=== PATIENT | male | born 1950 | race Caucasian/White ===

== ENCOUNTER 2017-06-08 16:11 | Inpatient (IN) | payer OTHER, MEDICARE ==
[~2017-06-08 16:11] MED LIST: AMLO10TA2 PO; ARIC23TA PO; CLON0.1T PO; CONTOUR1 XX; EZET10 PO; FINA5TAB2 PO; GLIP10TA6 PO; LEVO25TA4 PO; METF1000 PO; METO50TA PO; NIAC100T2 PO; PRAV40TA2 PO; PROZ20CA11 PO; RIVA1TAB PO; TAMS5CAP PO; Z.0.OXYGENDME NC
[2017-06-08 16:39] VITALS: PULSE 83; RESP 16; TEMP 98.6; O2SAT 95
[2017-06-08 17:32] LABS: AUTOMATED NEUTROPHIL # 4.2 TH/MM3 (1.8-7.7); BASOPHIL % 0.7 % (0.0-2.0); EOSINOPHIL # 0.4 TH/MM3 (0-0.4); EOSINOPHIL % 5.5 % (0.0-4.0); HEMATOCRIT 48.6 % (39.0-51.0); HEMO FLAGS DIFF FINAL; LYMPH % 20.9 % (9.0-44.0); LYMPHOCYTE # 1.4 TH/MM3 (1.0-4.8); MEAN CELL VOLUME 89.2 FL (80.0-100.0); MEAN CORPUSCULAR HGB CONC 33.6 % (32.0-36.0); MONO % 8.9 % (0.0-8.0); PLATELET COUNT 246 TH/MM3 (150-450); RED BLOOD COUNT 5.45 MIL/MM3 (4.50-5.90); RED CELL DISTRIBUTION WIDTH 13.4 % (11.6-17.2); WHITE BLOOD COUNT 6.5 TH/MM3 (4.0-11.0)
[2017-06-08 17:49] LABS: ALT (GPT) 104 U/L (12-78); ANION GAP 9 MEQ/L (5-15); AST (GOT) 98 U/L (15-37); BICARBONATE 31.3 MEQ/L (21.0-32.0); BLOOD UREA NITROGEN 12 MG/DL (7-18); CHLORIDE 98 MEQ/L (98-107); GLOMERULAR FILTRATION RATE 69 ML/MIN (>89); POTASSIUM 3.2 MEQ/L (3.5-5.1); SODIUM (NA) 138 MEQ/L (136-145)
[2017-06-08 17:51] LABS: ALCOHOL LESS THAN 3 MG/DL (0-5)
[2017-06-08 17:52] LABS: ALKALINE PHOSPHATASE 99 U/L (45-117); TOTAL BILIRUBIN ADULT 0.5 MG/DL (0.2-1.0)
[2017-06-08 17:57] LABS: ACETAMINOPHEN LESS THAN 2.0 MCG/ML (10.0-30.0)
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
--- NOTE | 2017-06-08 23:12 | RADRPT ---
EXAM DATE/TIME: 06/08/2017 22:42 [facility] COMPARISON: CHEST SINGLE AP, November 15, 2014, 8:21. INDICATIONS : Shortness of breath. MEDICAL HISTORY : None. SURGICAL HISTORY : CABG. ENCOUNTER: Initial ACUITY: 1 day PAIN SCORE: 0/10 LOCATION: Bilateral chest FINDINGS: A single view of the chest demonstrates the lungs to be symmetrically aerated without evidence of mas s, infiltrate or effusion. The cardiomediastinal contours are unremarkable. Osseous structures are intact. The patient is again noted to be status post median sternotomy. Mild atherosclerotic changes are present in the aorta. CONCLUSION: No acute disease. Montez Johnson MD on June 08, 2017 at 23:11 Board Certified Radiologist. This report was verified electronically.
[2017-06-08] MEDS ORDERED: LORazepam 2 MG TAB PO ONE (23:45)
[2017-06-09] VITALS (9 sets, daily range): BP systolic 118–217; BP diastolic 72–98; PULSE 66–94; RESP 15–20; O2SAT 95–98
[2017-06-09] MEDS ORDERED: ALUMINUM/MAGNESIUM/SIMETH 30 ML CUP PO PRN (17:30)
[2017-06-09] MEDS ORDERED: LORazepam 2 MG/ML VIAL IM PRN (17:30)
[2017-06-09] MEDS ORDERED: diphenhydrAMINE HCL 50 MG/ML VIAL IM PRN (17:30)
[2017-06-09] MEDS ORDERED: MAGNESIUM HYDROXIDE SUSP 30 ML CUP PO PRN (17:30)
[2017-06-09] MEDS ORDERED: diphenhydrAMINE HCL 50 MG CAP PO PRN (17:30)
[2017-06-09] MEDS ORDERED: ACETAMINOPHEN 325 MG TAB PO PRN (17:30)
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
[2017-06-09] MEDS: cloNIDine HCL 0.1 MG TAB PO SCH (18:00)
[2017-06-09] MEDS: NIACIN 100 MG TAB PO SCH (18:01)
[2017-06-09] MEDS: DONEPEZIL HCL 5 MG TAB PO SCH (21:18)
[2017-06-09] MEDS: TAMSULOSIN HCL 0.4 MG CAP PO SCH (21:19)
[2017-06-09] MEDS: METOPROLOL TARTRATE 50 MG TAB PO SCH (21:19)
[2017-06-09] MEDS: metFORMIN HCL 500 MG TAB PO SCH (21:19)
[2017-06-09] MEDS: traZODone HCL 50 MG TAB PO PRN (22:00)
[2017-06-09] MEDS: EZETIMIBE 10 MG TAB PO SCH (22:32)
[2017-06-09] MEDS ORDERED: ENALAPRILAT 2.5 MG/2 ML VIAL IV PUSH ONE (23:30)
[2017-06-10 03:20] VITALS: BP 116/67; PULSE 78; RESP 16; O2SAT 97
[2017-06-10 04:16] VITALS: BP 172/78; PULSE 68; RESP 16; O2SAT 96
[2017-06-10 04:20] LABS: AUTOMATED NEUTROPHIL # 2.8 TH/MM3 (1.8-7.7); BASOPHIL % 0.7 % (0.0-2.0); EOSINOPHIL # 0.6 TH/MM3 (0-0.4); EOSINOPHIL % 10.4 % (0.0-4.0); HEMATOCRIT 42.5 % (39.0-51.0); HEMO FLAGS DIFF FINAL; LYMPH % 28.9 % (9.0-44.0); LYMPHOCYTE # 1.5 TH/MM3 (1.0-4.8); MEAN CELL VOLUME 89.4 FL (80.0-100.0); MEAN CORPUSCULAR HEMOGLOBIN 29.3 PG (27.0-34.0); MEAN CORPUSCULAR HGB CONC 32.8 % (32.0-36.0); MONO % 8.5 % (0.0-8.0); NEUT % 51.5 % (16.0-70.0); PLATELET COUNT 195 TH/MM3 (150-450); RED BLOOD COUNT 4.75 MIL/MM3 (4.50-5.90); RED CELL DISTRIBUTION WIDTH 13.2 % (11.6-17.2); WHITE BLOOD COUNT 5.4 TH/MM3 (4.0-11.0)
[2017-06-10 05:27] LABS: ALKALINE PHOSPHATASE 68 U/L (45-117); ALT (GPT) 85 U/L (12-78); ANION GAP 8 MEQ/L (5-15); AST (GOT) 57 U/L (15-37); BICARBONATE 31.8 MEQ/L (21.0-32.0); BLOOD UREA NITROGEN 14 MG/DL (7-18); CHLORIDE 99 MEQ/L (98-107); GLOMERULAR FILTRATION RATE 73 ML/MIN (>89); HDL CHOLESTEROL 31.6 MG/DL (40.0-60.0); LDL CHOLESTEROL 112 MG/DL (0-99); SODIUM (NA) 139 MEQ/L (136-145); TOTAL BILIRUBIN ADULT 0.4 MG/DL (0.2-1.0)
[2017-06-10 06:17] VITALS: BP 124/59; PULSE 65; RESP 16; O2SAT 96
[2017-06-10] MEDS: PRAVASTATIN SOD 40 MG TAB PO SCH (08:55)
[2017-06-10] MEDS: glipiZIDE 10 MG TAB PO SCH ×2 (08:55→16:18)
[2017-06-10] MEDS: LEVOTHYROXINE SODIUM 25 MCG TAB PO SCH (08:55)
[2017-06-10] MEDS: METOPROLOL TARTRATE 50 MG TAB PO SCH ×2 (08:56→20:43)
[2017-06-10] MEDS: cloNIDine HCL 0.1 MG TAB PO SCH ×3 (08:56→17:42)
[2017-06-10] MEDS: FINASTERIDE 5 MG TAB PO SCH (08:56)
[2017-06-10] MEDS: NIACIN 100 MG TAB PO SCH ×3 (08:56→17:42)
[2017-06-10] MEDS: metFORMIN HCL 500 MG TAB PO SCH ×2 (08:56→20:44)
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
[2017-06-10] MEDS ORDERED: POTASSIUM CHLORIDE 25 MEQ EFFERVESCENT TAB PO ONE (11:45)
[2017-06-10] MEDS: INSULIN ASPART SUPPLEMENTAL SCALE SQ SCH ×3 (12:00→20:43)
[2017-06-10 13:14] VITALS: BP 155/72; PULSE 58
[2017-06-10] MEDS: RIVAROXABAN 20 MG TAB PO SCH (14:28)
[2017-06-10] MEDS: NICOTINE 7 MG/24 HR PATCH T-DERMAL SCH (14:29)
[2017-06-10] MEDS: LORazepam 1 MG TAB PO PRN (15:35)
[2017-06-10 16:01] LABS: HEMOGLOBIN A1a 0.9 %; HEMOGLOBIN A1b 2.3 %; HEMOGLOBIN Ao 80.9 %; HEMOGLOBIN LA1C 2.7 %; HEMOGLOBIN P3 4.8 %
--- NOTE | 2017-06-10 16:02 | RADRPT ---
EXAM DATE/TIME: 06/10/2017 15:00 [place] COMPARISON: No previous studies available for comparison. INDICATIONS : Pain in right shoulder, no known injury. MEDICAL HISTORY : None. SURGICAL HISTORY : CABG. ENCOUNTER: Subsequent ACUITY: 2 days PAIN SCORE: 0/10 LOCATION: Right shoulder FINDINGS: There is no evidence of acute fracture. Bony mineralization is normal. The glenohumeral joint is inta ct. There is mild osteoarthritis involving the acromioclavicular joint with spur on the undersurface of the distal acromion.. There is sclerosis at the insertion of the supraspinatus tendon. CONCLUSION: 1. Moderate degenerative changes as described above. If there is continued concern for rotator cuff p athology MRI is recommended. Evan Cheney MD on June 10, 2017 at 15:59 Board Certified Radiologist. This report was verified electronically.
[2017-06-10 18:00] VITALS: BP 128/64; PULSE 18; PULSE 84; RESP 18; TEMP 97.2; O2SAT 98
--- NOTE | 2017-06-10 18:05 | EKG ---
Date Performed: 06/09/2017 Time Performed: 22:28:16 PTAGE: 67 years EKG: SINUS BRADYCARDIA INCOMPLETE RIGHT BUNDLE BRANCH BLOCK ST DEVIATION AND MODERATE T-WAVE ABN ORMALITY, CONSIDER LATERAL ISCHEMIA When compared to previous tracing, the nonspecific ST-T wave Alaniz ges are new. Clinical corrolation will be important to exclude myocardial Ischemia. ABNORMAL ECG PREVIOUS TRACING : 04/14/2015 20.38 DOCTOR: Marissa Naidu Interpretating Date/Time 06/10/2017 18:04:25
[2017-06-10 19:15] VITALS: BP 177/84; PULSE 54; RESP 17; TEMP 97.8; O2SAT 96
[2017-06-10] MEDS: EZETIMIBE 10 MG TAB PO SCH (20:43)
[2017-06-10] MEDS: DONEPEZIL HCL 5 MG TAB PO SCH (20:44)
[2017-06-10] MEDS: traZODone HCL 50 MG TAB PO PRN (20:44)
[2017-06-10] MEDS: TAMSULOSIN HCL 0.4 MG CAP PO SCH (20:44)
[2017-06-10] MEDS: RESP: ALBUTEROL 2.5 MG/IPRATROPIUM 0.5 MG NEB (PRN) NEB (22:20)
[2017-06-11] MEDS: RESP: ALBUTEROL 2.5 MG/IPRATROPIUM 0.5 MG NEB (PRN) NEB (04:54)
[2017-06-11] MEDS: LEVOTHYROXINE SODIUM 25 MCG TAB PO SCH (05:00)
[2017-06-11] MEDS ORDERED: cloNIDine HCL 0.1 MG TAB PO ONE (06:00)
[2017-06-11 06:18] VITALS: BP_SYST 200; BP_DIAS 80; BP_DIAS 82; PULSE 51; RESP 21; TEMP 97.7; O2SAT 96
[2017-06-11] MEDS: INSULIN ASPART SUPPLEMENTAL SCALE SQ SCH ×4 (06:53→21:00)
[2017-06-11] MEDS: glipiZIDE 10 MG TAB PO SCH ×2 (06:56→16:00)
[2017-06-11] MEDS: metFORMIN HCL 500 MG TAB PO SCH ×2 (09:00→20:58)
[2017-06-11] MEDS: REMOVE OLD PATCH T-DERMAL SCH (09:00)
[2017-06-11] MEDS: NICOTINE 7 MG/24 HR PATCH T-DERMAL SCH (09:00)
[2017-06-11] MEDS: METOPROLOL TARTRATE 50 MG TAB PO SCH ×2 (09:03→20:58)
[2017-06-11] MEDS: FINASTERIDE 5 MG TAB PO SCH (09:03)
[2017-06-11] MEDS: NIACIN 100 MG TAB PO SCH ×3 (09:03→18:00)
[2017-06-11] MEDS: PRAVASTATIN SOD 40 MG TAB PO SCH (09:03)
[2017-06-11] MEDS: RIVAROXABAN 20 MG TAB PO SCH (09:04)
[2017-06-11] MEDS: cloNIDine HCL 0.1 MG TAB PO SCH ×3 (09:04→18:00)
[2017-06-11 09:12] LABS: BICARBONATE 26.8 MEQ/L (21.0-32.0); MAGNESIUM 1.2 MG/DL (1.5-2.5); POTASSIUM 3.3 MEQ/L (3.5-5.1)
[2017-06-11] MEDS: FLUoxetine HCL 20 MG CAP PO SCH (11:49)
[2017-06-11 14:12] VITALS: BP 139/63; PULSE 52; RESP 18; TEMP 98; O2SAT 96
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
[2017-06-11] MEDS ORDERED: POTASSIUM CHLORIDE 25 MEQ EFFERVESCENT TAB PO ONE (17:15)
--- NOTE | 2017-06-11 17:15 | HHI.PR ---
Subjective Remarks The patient was resting comfortably. He said he wants to get out of here. He had no acute complaints at this time. He said his right shoulder pain has improved. Objective Vitals Vital Signs Date Time Temp Pulse Resp B/P (MAP) Pulse Ox O2 Delivery O2 Flow Rate FiO2 06/11/17 14:12 98.0 52 18 139/63 (88) 96 06/11/17 06:18 97.7 51 21 200/82 (121) 96 200/80 (120) 06/10/17 19:15 97.8 54 17 177/84 (115) 96 06/10/17 18:00 97.2 84 18 128/64 (85) 98 I/O 06/10/17 06/10/17 06/10/17 06/11/17 06/11/17 06/11/17 07:00 15:00 23:00 07:00 15:00 23:00 Intake Total 1560 ml 480 ml 0 ml 480 ml Output Total 400 ml Balance -400 ml 1560 ml 480 ml 0 ml 480 ml Intake Oral 1560 ml 480 ml 0 ml 480 ml Output Urine Total 400 ml # Voids 5 1 2 # Bowel Movements 2 Result Diagram: 06/10/17 0407 06/11/17 0827 Imaging Last Impressions Shoulder X-Ray 06/10/17 0000 Signed Impressions: Service Date/Time: Saturday, June 10, 2017 15:00 - CONCLUSION: 1. Moderate degenerative changes as described above. If there is continued concern for rotator cuff pathology MRI is recommended. Evan Cheney MD Chest X-Ray 06/08/17 0000 Signed Impressions: Service Date/Time: Thursday, June 08, 2017 22:42 - CONCLUSION: No acute disease. Montez Johnson MD Objective Remarks GENERAL: This is a well-nourished, well-developed patient, in no apparent distress. SKIN: No rashes, ecchymoses or lesions. Cool and dry. HEAD: Atraumatic. Normocephalic. No temporal or scalp tenderness. EYES: Pupils equal round and reactive. Extraocular motions intact. No scleral icterus. No injection or drainage. ENT: Nose without bleeding, purulent drainage or septal hematoma. Throat without erythema, tonsillar hypertrophy or exudate. Uvula midline. Airway patent. NECK: Trachea midline. No JVD or lymphadenopathy. Supple, nontender, no meningeal signs. CARDIOVASCULAR: Regular rate and rhythm without murmurs, gallops, or rubs. RESPIRATORY: Mild wheezing appreciated. GASTROINTESTINAL: Abdomen soft, non-tender, nondistended. No hepato-splenomegaly , or palpable masses. No guarding. MUSCULOSKELETAL: Extremities without clubbing, cyanosis, or edema. No joint tenderness, effusion, or edema noted. NEUROLOGICAL: Awake and alert. Cranial nerves II through XII intact. Motor and sensory grossly within normal limits. Five out of 5 muscle strength in all muscle groups. Normal speech. PSYCH: Calm. Medications and IVs Current Medications Medications (Trade) Dose Ordered Sig/Karey Route Start Time Stop Time Status Last Admin (Ativan) 1 mg Q6H PRN PO 06/09/17 17:30 06/10/17 15:35 (Ativan Inj) 1 mg Q6H PRN IM 06/09/17 17:30 (Benadryl) 50 mg Q6H PRN PO 06/09/17 17:30 (Benadryl Inj) 50 mg Q6H PRN IM 06/09/17 17:30 (Tylenol) 650 mg Q4H PRN PO 06/09/17 17:30 (Milk Of Magnesia Liq) 30 ml DAILY PRN PO 06/09/17 17:30 (Mag-Al Plus Susp Liq) 30 ml Q6H PRN PO 06/09/17 17:30 (Desyrel) 50 mg HS PRN PO 06/09/17 17:30 06/10/17 20:44 (Norvasc) 10 mg DAILY PO 06/10/17 09:00 06/11/17 09:03 (Catapres) 0.1 mg TID PO 06/09/17 18:00 06/11/17 09:04 (Aricept) 10 mg HS PO 06/09/17 21:00 06/10/17 20:44 (Zetia) 10 mg HS PO 06/09/17 21:00 06/10/17 20:43 (Proscar) 5 mg DAILY PO 06/10/17 09:00 06/11/17 09:03 (Glucotrol) 10 mg BIDAC PO 06/10/17 07:00 06/11/17 16:00 (Synthroid) 25 mcg DAILY@0600 PO 06/10/17 06:00 06/11/17 05:00 (Glucophage) 1,000 mg BID PO 06/09/17 21:00 06/11/17 09:00 (Lopressor) 50 mg BID PO 06/09/17 21:00 06/11/17 09:03 (Niacin) 100 mg TID PO 06/09/17 18:00 06/11/17 13:00 (Pravachol) 40 mg DAILY PO 06/10/17 09:00 06/11/17 09:03 (Flomax) 0.4 mg HS PO 06/09/17 21:00 06/10/17 20:44 (Habitrol 7 Mg Patch.24 Hr) 1 patch DAILY T-DERMAL 06/10/17 12:30 06/11/17 09:00 Miscellaneous Information 1 DAILY T-DERMAL 06/11/17 09:00 (NovoLOG SUPPLEMENTAL SCALE) 1 ACHS SLIDING SCALE SQ 06/10/17 12:00 06/11/17 16:45 (Xarelto) 20 mg DAILY PO 06/10/17 12:30 06/11/17 09:04 (Duoneb Neb) 1 ampule Q4HR NEB PRN NEB 06/10/17 22:15 06/11/17 04:54 (PROzac) 20 mg DAILY PO 06/11/17 12:00 06/11/17 11:49 A/P Assessment and Plan CAD S/p CABG. No complaints of chest pain at this time. - continue home medication regimen. CVA/ Hypercoagulable state On Xarelto as an outpt. - resume Xarelto. COPD The pt still smokes, has wheezing on exam. CXR clear. - oxygen and nebs as needed. - smoking cessation instruction. - nicotine patch. Hypokalemia/ Hypomagnesemia Possibly s/t decreased PO intake. - replete with po KCl and IV magnesium and monitor. Right shoulder pain The pt reports pain in the right shoulder after being put in the police car. Shoulder x ray with degenerative changes. Improved. - monitor as needed. DM On PO meds as an outpt. - insulin sliding scale. Renal insufficiency Stable at this time. - avoid nephrotoxic agents. PPx: Montez Cortez DO Jun 11, 2017 17:15
[2017-06-11 18:00] VITALS: BP 142/65; PULSE 49; RESP 17; TEMP 97.7; O2SAT 94
[2017-06-11] MEDS: TAMSULOSIN HCL 0.4 MG CAP PO SCH (20:58)
[2017-06-11] MEDS: DONEPEZIL HCL 5 MG TAB PO SCH (20:58)
[2017-06-11] MEDS: EZETIMIBE 10 MG TAB PO SCH (20:58)
[2017-06-11] MEDS: traZODone HCL 50 MG TAB PO PRN (20:58)
[2017-06-11] MEDS: MAGNESIUM SULFATE 1 GM PREMIX 100 ML IV SCH ×2 (22:08→23:47)
[2017-06-12] MEDS: MAGNESIUM SULFATE 1 GM PREMIX 100 ML IV SCH (01:09)
[2017-06-12 05:08] VITALS: BP 164/81
[2017-06-12 05:24] VITALS: PULSE 90; RESP 18; TEMP 97.4; O2SAT 97
[2017-06-12] MEDS: LEVOTHYROXINE SODIUM 25 MCG TAB PO SCH (06:00)
[2017-06-12] MEDS: glipiZIDE 10 MG TAB PO SCH ×2 (07:00→15:20)
[2017-06-12] MEDS: INSULIN ASPART SUPPLEMENTAL SCALE SQ SCH ×4 (08:00→20:49)
[2017-06-12 08:41] LABS: BICARBONATE 32.3 MEQ/L (21.0-32.0); MAGNESIUM 1.8 MG/DL (1.5-2.5); POTASSIUM 3.6 MEQ/L (3.5-5.1)
[2017-06-12] MEDS: REMOVE OLD PATCH T-DERMAL SCH (09:00)
[2017-06-12] MEDS: PRAVASTATIN SOD 40 MG TAB PO SCH (09:30)
[2017-06-12] MEDS: cloNIDine HCL 0.1 MG TAB PO SCH ×3 (09:30→18:00)
[2017-06-12] MEDS: FINASTERIDE 5 MG TAB PO SCH (09:30)
[2017-06-12] MEDS: METOPROLOL TARTRATE 50 MG TAB PO SCH ×2 (09:30→20:39)
[2017-06-12] MEDS: RIVAROXABAN 20 MG TAB PO SCH (09:30)
[2017-06-12] MEDS: metFORMIN HCL 500 MG TAB PO SCH ×2 (09:30→20:39)
[2017-06-12] MEDS: NIACIN 100 MG TAB PO SCH ×3 (09:30→18:00)
[2017-06-12] MEDS: NICOTINE 7 MG/24 HR PATCH T-DERMAL SCH (09:30)
[2017-06-12] MEDS: FLUoxetine HCL 20 MG CAP PO SCH (09:31)
--- NOTE | 2017-06-12 11:54 | HHI.PYPN ---
Subjective Remarks Patient seen for follow-up, chart reviewed. Discussion with nursing staff reported the patient compliant with medications, slept still noted to be confused at times. Patient was found lying in bed asleep but was able to wake up and interact with interview with medical writer, nurse, and occupational therapist. Patient states that his mood is "good", alert and oriented only to person patient states he did not remember events prior to his admission noted to be confused state that he is hearing recently got . Patient had to be re- oriented continues to be forgetful. Results mental health court today which justice court judge had granted retention for involuntary hospitalization due to concern of patient's ability care for self. Review of Systems Except as stated in HPI: all other systems reviewed are Neg Mental Status Examination Appearance: Disheveled Consciousness: Alert Orientation: Person Motor Activity: Normal gait Speech: Unremarkable Language: Adequate Fund of Knowledge: Inadequate Attention and Concentration: Inadequate Memory: Impaired Mood: Irritable Affect: Irritable, Anxious Thought Process & Associations: Intact, Linear Thought Content: Appropriate, Delusional Hallucination Type: None Delusion Type: Paranoid (that his family is trying to take away his money) Suicidal Ideation: No Suicidal Plan: No Suicidal Intention: No Homicidal Ideation: No Homicidal Plan: No Homicidal Intention: No Insight: Poor Judgment: Impulsive Results Labs Labs reviewed. Test 06/12/17 07:50 Blood Urea Nitrogen 14 MG/DL Creatinine 0.97 MG/DL Random Glucose 151 MG/DL Calcium Level 8.7 MG/DL Magnesium Level 1.8 MG/DL Sodium Level 139 MEQ/L Potassium Level 3.6 MEQ/L Chloride Level 100 MEQ/L Carbon Dioxide Level 32.3 MEQ/L Anion Gap 7 MEQ/L Estimat Glomerular Filtration Rate 77 ML/MIN Vitals/IOs Vital Signs Date Time Temp Pulse Resp B/P (MAP) Pulse Ox O2 Delivery O2 Flow Rate FiO2 06/12/17 05:24 97.4 90 18 97 06/12/17 05:08 164/81 (108) 06/10/17 06:17 Room Air Assessment & Plan Problem List: (1) Dementia with behavioral problem ICD Codes: F03.91 - Unspecified dementia with behavioral disturbance (2) Alzheimer's dementia with behavioral disturbance ICD Codes: G30.8 - Other Alzheimer's disease; F02.81 - Dementia in other diseases classified elsewhere with behavioral disturbance Assessment & Plan Patient at this time continues to deny that have poor insight into his neurocognitive decline. Patient continues to be alert and oriented only to person at times to place but is unable to recall specific events prior to his admission and details. Patient was retained in mental health court today for involuntary hospitalization. We'll continue to search for adequate services that will meet his needs to address the danger of patient's neurocognitive deficits that affect his ability care for himself. Discharge planning in progress. Justification for Cont. Inpt. At risk for further decompensation if at lower level of care Discharge Planning Patient to be discharged to home with services or to daughter. Johann Lópze MD Jun 12, 2017 11:54
--- NOTE | 2017-06-12 16:15 | HHI.PR ---
Subjective Remarks The patient wanted to go home. He had no acute complaints. Objective Vitals Vital Signs Date Time Temp Pulse Resp B/P (MAP) Pulse Ox O2 Delivery O2 Flow Rate FiO2 06/12/17 05:24 97.4 90 18 97 06/12/17 05:08 164/81 (108) 06/11/17 18:00 97.7 49 17 142/65 (90) 94 I/O 06/11/17 06/11/17 06/11/17 06/12/17 06/12/17 06/12/17 07:00 15:00 23:00 07:00 15:00 23:00 Intake Total 0 ml 480 ml 480 ml 480 ml Balance 0 ml 480 ml 480 ml 480 ml Intake Oral 0 ml 480 ml 480 ml 480 ml # Voids 2 4 Result Diagram: 06/10/17 0407 06/12/17 0750 Imaging Last Impressions Shoulder X-Ray 06/10/17 0000 Signed Impressions: Service Date/Time: Saturday, June 10, 2017 15:00 - CONCLUSION: 1. Moderate degenerative changes as described above. If there is continued concern for rotator cuff pathology MRI is recommended. Evan Cheney MD Chest X-Ray 06/08/17 0000 Signed Impressions: Service Date/Time: Thursday, June 08, 2017 22:42 - CONCLUSION: No acute disease. Montez Johnson MD Objective Remarks GENERAL: This is a well-nourished, well-developed patient, in no apparent distress. SKIN: No rashes, ecchymoses or lesions. Cool and dry. HEAD: Atraumatic. Normocephalic. No temporal or scalp tenderness. EYES: Pupils equal round and reactive. Extraocular motions intact. No scleral icterus. No injection or drainage. ENT: Nose without bleeding, purulent drainage or septal hematoma. Throat without erythema, tonsillar hypertrophy or exudate. Uvula midline. Airway patent. NECK: Trachea midline. No JVD or lymphadenopathy. Supple, nontender, no meningeal signs. CARDIOVASCULAR: Regular rate and rhythm without murmurs, gallops, or rubs. RESPIRATORY: Mild wheezing appreciated. GASTROINTESTINAL: Abdomen soft, non-tender, nondistended. No hepato-splenomegaly , or palpable masses. No guarding. MUSCULOSKELETAL: Extremities without clubbing, cyanosis, or edema. No joint tenderness, effusion, or edema noted. NEUROLOGICAL: Awake and alert. Cranial nerves II through XII intact. Motor and sensory grossly within normal limits. Five out of 5 muscle strength in all muscle groups. Normal speech. PSYCH: Calm. Medications and IVs Current Medications Medications (Trade) Dose Ordered Sig/Karey Route Start Time Stop Time Status Last Admin (Ativan) 1 mg Q6H PRN PO 06/09/17 17:30 06/10/17 15:35 (Ativan Inj) 1 mg Q6H PRN IM 06/09/17 17:30 (Benadryl) 50 mg Q6H PRN PO 06/09/17 17:30 06/11/17 20:59 (Benadryl Inj) 50 mg Q6H PRN IM 06/09/17 17:30 (Tylenol) 650 mg Q4H PRN PO 06/09/17 17:30 06/11/17 18:49 (Milk Of Magnesia Liq) 30 ml DAILY PRN PO 06/09/17 17:30 (Mag-Al Plus Susp Liq) 30 ml Q6H PRN PO 06/09/17 17:30 (Desyrel) 50 mg HS PRN PO 06/09/17 17:30 06/11/17 20:58 (Norvasc) 10 mg DAILY PO 06/10/17 09:00 06/12/17 09:30 (Catapres) 0.1 mg TID PO 06/09/17 18:00 06/12/17 13:00 (Aricept) 10 mg HS PO 06/09/17 21:00 06/11/17 20:58 (Zetia) 10 mg HS PO 06/09/17 21:00 06/11/17 20:58 (Proscar) 5 mg DAILY PO 06/10/17 09:00 06/12/17 09:30 (Glucotrol) 10 mg BIDAC PO 06/10/17 07:00 06/12/17 15:20 (Synthroid) 25 mcg DAILY@0600 PO 06/10/17 06:00 06/12/17 06:00 (Glucophage) 1,000 mg BID PO 06/09/17 21:00 06/12/17 09:30 (Lopressor) 50 mg BID PO 06/09/17 21:00 06/12/17 09:30 (Niacin) 100 mg TID PO 06/09/17 18:00 06/12/17 13:00 (Pravachol) 40 mg DAILY PO 06/10/17 09:00 06/12/17 09:30 (Flomax) 0.4 mg HS PO 06/09/17 21:00 06/11/17 20:58 (Habitrol 7 Mg Patch.24 Hr) 1 patch DAILY T-DERMAL 06/10/17 12:30 06/12/17 09:30 Miscellaneous Information 1 DAILY T-DERMAL 06/11/17 09:00 (NovoLOG SUPPLEMENTAL SCALE) 1 ACHS SLIDING SCALE SQ 06/10/17 12:00 06/12/17 12:00 (Xarelto) 20 mg DAILY PO 06/10/17 12:30 06/12/17 09:30 (Duoneb Neb) 1 ampule Q4HR NEB PRN NEB 06/10/17 22:15 06/11/17 04:54 (PROzac) 20 mg DAILY PO 06/11/17 12:00 06/12/17 09:31 A/P Assessment and Plan CAD S/p CABG. No complaints of chest pain at this time. - continue home medication regimen. CVA/ Hypercoagulable state On Xarelto as an outpt. - resume Xarelto. COPD The pt still smokes, has wheezing on exam. CXR clear. - oxygen and nebs as needed. - smoking cessation instruction. - nicotine patch. Hypokalemia/ Hypomagnesemia Possibly s/t decreased PO intake. - replete with po KCl and IV magnesium and monitor as needed. Right shoulder pain The pt reports pain in the right shoulder after being put in the police car. Shoulder x ray with degenerative changes. Improved. - monitor as needed. DM On PO meds as an outpt. Glucose level fluctuates. - insulin sliding scale. Renal insufficiency Stable at this time. - avoid nephrotoxic agents. PPx: Montez Cortez DO Jun 12, 2017 16:14
[2017-06-12 18:17] VITALS: BP 146/84; PULSE 48; RESP 18; TEMP 97.7; O2SAT 96
[2017-06-12] MEDS: DONEPEZIL HCL 5 MG TAB PO SCH (20:39)
[2017-06-12] MEDS: EZETIMIBE 10 MG TAB PO SCH (20:39)
[2017-06-12] MEDS: TAMSULOSIN HCL 0.4 MG CAP PO SCH (20:39)
[2017-06-12 22:00] VITALS: PULSE 58
[2017-06-13] MEDS: LEVOTHYROXINE SODIUM 25 MCG TAB PO SCH (05:41)
[2017-06-13 06:18] VITALS: BP 142/88
[2017-06-13 06:29] VITALS: BP 178/88; PULSE 52; RESP 17; TEMP 97.8; O2SAT 95
[2017-06-13] MEDS: INSULIN ASPART SUPPLEMENTAL SCALE SQ SCH ×4 (08:00→21:04)
[2017-06-13] MEDS: glipiZIDE 10 MG TAB PO SCH ×2 (08:03→16:06)
[2017-06-13] MEDS: cloNIDine HCL 0.1 MG TAB PO SCH ×3 (08:57→18:05)
[2017-06-13] MEDS: metFORMIN HCL 500 MG TAB PO SCH ×2 (08:57→20:23)
[2017-06-13] MEDS: PRAVASTATIN SOD 40 MG TAB PO SCH (08:57)
[2017-06-13] MEDS: RIVAROXABAN 20 MG TAB PO SCH (09:00)
[2017-06-13] MEDS: METOPROLOL TARTRATE 50 MG TAB PO SCH ×2 (09:00→20:23)
[2017-06-13] MEDS: NICOTINE 7 MG/24 HR PATCH T-DERMAL SCH (09:00)
[2017-06-13] MEDS: REMOVE OLD PATCH T-DERMAL SCH (09:00)
[2017-06-13] MEDS: NIACIN 100 MG TAB PO SCH ×3 (09:00→18:05)
[2017-06-13] MEDS: FINASTERIDE 5 MG TAB PO SCH (09:00)
[2017-06-13] MEDS: FLUoxetine HCL 20 MG CAP PO SCH (10:20)
[2017-06-13] MEDS: LISINOPRIL 10 MG TAB PO SCH (11:00)
--- NOTE | 2017-06-13 13:18 | HHI.PYPN ---
Subjective Remarks Patient seen for follow-up, chart review. Patient found lying in hospital bed, cooperative. Patient states that she's been feeling "alright" but asking when he is able to go home. Patient reports no difficulty with sleep, eating and drinking or bowel movement. Patient reports tolerating medications well, and sports feeling well and tolerating medications without any adverse drug reactions reported. Patient aware that her daughter is coming down to help with his discharge back home. Discussion about allowing [facility] be beneficial, was noted to be somewhat resistant to the idea but after sterile discussion of benefits patient open to the idea. Patient's primary care doctor, Dr. Ramirez, was contacted and discussed the process in which request to DMV was to be notified of safety concern in that the patient is a danger driving. Dr. Ramirez stated that his office would have no issues initiating the process as he stated felt that the patient should be allowed to continue driving. Review of Systems Except as stated in HPI: all other systems reviewed are Neg Mental Status Examination Appearance: Disheveled Consciousness: Alert Orientation: Person Motor Activity: Normal gait Speech: Unremarkable Language: Adequate Fund of Knowledge: Inadequate Attention and Concentration: Inadequate Memory: Impaired Mood: Irritable Affect: Irritable (less so today), Anxious Thought Process & Associations: Intact, Linear Thought Content: Appropriate, Delusional Hallucination Type: None Delusion Type: Paranoid (that his family is trying to take away his money) Suicidal Ideation: No Suicidal Plan: No Suicidal Intention: No Homicidal Ideation: No Homicidal Plan: No Homicidal Intention: No Insight: Poor Judgment: Impulsive Results Vitals/IOs Vital Signs Date Time Temp Pulse Resp B/P (MAP) Pulse Ox O2 Delivery O2 Flow Rate FiO2 06/13/17 06:29 97.8 52 17 178/88 (118) 95 06/10/17 06:17 Room Air Intake and Output 06/13/17 06/13/17 06/14/17 08:00 16:00 00:00 Intake Total 960 ml Balance 960 ml Assessment & Plan Problem List: (1) Dementia with behavioral problem ICD Codes: F03.91 - Unspecified dementia with behavioral disturbance (2) Alzheimer's dementia with behavioral disturbance ICD Codes: G30.8 - Other Alzheimer's disease; F02.81 - Dementia in other diseases classified elsewhere with behavioral disturbance Assessment & Plan Patient continues to return to be slightly irritable as he states he wants to be able to go home and feels he is "locked up". Patient tolerating medications well and denies any mood symptoms or psychotic symptoms at this time continues to have neurocognitive deficits due to his diagnoses of dementia. Patient aware that daughter is coming down to help with his discharge. Patient currently is "in considering accept home health services. Continue current treatment. Discharge planning in progress Justification for Cont. Inpt. At risk for further decompensation event lower level of care Discharge Planning Patient to be discharged home with services and to daughter. Johann López MD Jun 13, 2017 13:18
[2017-06-13 17:24] VITALS: BP 145/68; PULSE 55; RESP 18; TEMP 97.7; O2SAT 95
[2017-06-13] MEDS: EZETIMIBE 10 MG TAB PO SCH (20:23)
[2017-06-13] MEDS: TAMSULOSIN HCL 0.4 MG CAP PO SCH (20:23)
[2017-06-13] MEDS: DONEPEZIL HCL 5 MG TAB PO SCH (20:23)
[2017-06-14 06:02] VITALS: BP 171/74; PULSE 56; RESP 17; TEMP 92.5; O2SAT 97
[2017-06-14] MEDS: LEVOTHYROXINE SODIUM 25 MCG TAB PO SCH (06:16)
[2017-06-14] MEDS: glipiZIDE 10 MG TAB PO SCH ×2 (07:00→16:00)
[2017-06-14] MEDS: INSULIN ASPART SUPPLEMENTAL SCALE SQ SCH ×4 (08:00→21:14)
[2017-06-14] MEDS: FINASTERIDE 5 MG TAB PO SCH (08:35)
[2017-06-14] MEDS: LISINOPRIL 10 MG TAB PO SCH (08:35)
[2017-06-14] MEDS: metFORMIN HCL 500 MG TAB PO SCH ×2 (08:35→21:12)
[2017-06-14] MEDS: FLUoxetine HCL 20 MG CAP PO SCH (08:35)
[2017-06-14] MEDS: cloNIDine HCL 0.1 MG TAB PO SCH ×3 (08:35→17:08)
[2017-06-14] MEDS: PRAVASTATIN SOD 40 MG TAB PO SCH (08:35)
[2017-06-14] MEDS: METOPROLOL TARTRATE 50 MG TAB PO SCH ×2 (08:35→21:00)
[2017-06-14] MEDS: RIVAROXABAN 20 MG TAB PO SCH (08:35)
[2017-06-14] MEDS: NICOTINE 7 MG/24 HR PATCH T-DERMAL SCH (08:35)
[2017-06-14] MEDS: REMOVE OLD PATCH T-DERMAL SCH (08:36)
[2017-06-14] MEDS: NIACIN 100 MG TAB PO SCH ×3 (08:36→17:08)
[2017-06-14 09:35] VITALS: BP 142/79; PULSE 63
--- NOTE | 2017-06-14 09:43 | HHI.PR ---
Subjective Remarks The pt was resting comfortably in bed. He said his shoulder was feeling better. Hoping to go home soon. Objective Vitals Vital Signs Date Time Temp Pulse Resp B/P (MAP) Pulse Ox O2 Delivery O2 Flow Rate FiO2 06/14/17 06:02 92.5 56 17 171/74 (106) 97 06/13/17 17:24 97.7 55 18 145/68 (93) 95 I/O 06/13/17 06/13/17 06/13/17 06/14/17 06/14/17 06/14/17 07:00 15:00 23:00 07:00 15:00 23:00 Intake Total 960 ml 480 ml 240 ml Balance 960 ml 480 ml 240 ml Intake Oral 960 ml 480 ml 240 ml # Voids 2 Result Diagram: 06/10/17 0407 06/12/17 0750 Imaging Last Impressions Shoulder X-Ray 06/10/17 0000 Signed Impressions: Service Date/Time: Saturday, June 10, 2017 15:00 - CONCLUSION: 1. Moderate degenerative changes as described above. If there is continued concern for rotator cuff pathology MRI is recommended. Evan Cheney MD Chest X-Ray 06/08/17 0000 Signed Impressions: Service Date/Time: Thursday, June 08, 2017 22:42 - CONCLUSION: No acute disease. Montez Johnson MD Objective Remarks GENERAL: This is a well-nourished, well-developed patient, in no apparent distress. SKIN: No rashes, ecchymoses or lesions. Cool and dry. HEAD: Atraumatic. Normocephalic. No temporal or scalp tenderness. EYES: Pupils equal round and reactive. Extraocular motions intact. No scleral icterus. No injection or drainage. ENT: Nose without bleeding, purulent drainage or septal hematoma. Throat without erythema, tonsillar hypertrophy or exudate. Uvula midline. Airway patent. NECK: Trachea midline. No JVD or lymphadenopathy. Supple, nontender, no meningeal signs. CARDIOVASCULAR: Regular rate and rhythm without murmurs, gallops, or rubs. RESPIRATORY: Mild wheezing appreciated. GASTROINTESTINAL: Abdomen soft, non-tender, nondistended. No hepato-splenomegaly , or palpable masses. No guarding. MUSCULOSKELETAL: Extremities without clubbing, cyanosis, or edema. No joint tenderness, effusion, or edema noted. NEUROLOGICAL: Awake and alert. Cranial nerves II through XII intact. Motor and sensory grossly within normal limits. Five out of 5 muscle strength in all muscle groups. Normal speech. PSYCH: Calm. Medications and IVs Current Medications Medications (Trade) Dose Ordered Sig/Karey Route Start Time Stop Time Status Last Admin (Ativan) 1 mg Q6H PRN PO 06/09/17 17:30 06/10/17 15:35 (Ativan Inj) 1 mg Q6H PRN IM 06/09/17 17:30 (Benadryl) 50 mg Q6H PRN PO 06/09/17 17:30 06/11/17 20:59 (Benadryl Inj) 50 mg Q6H PRN IM 06/09/17 17:30 (Tylenol) 650 mg Q4H PRN PO 06/09/17 17:30 06/11/17 18:49 (Milk Of Magnesia Liq) 30 ml DAILY PRN PO 06/09/17 17:30 (Mag-Al Plus Susp Liq) 30 ml Q6H PRN PO 06/09/17 17:30 (Desyrel) 50 mg HS PRN PO 06/09/17 17:30 06/11/17 20:58 (Norvasc) 10 mg DAILY PO 06/10/17 09:00 06/14/17 08:35 (Catapres) 0.1 mg TID PO 06/09/17 18:00 06/14/17 08:35 (Aricept) 10 mg HS PO 06/09/17 21:00 06/13/17 20:23 (Zetia) 10 mg HS PO 06/09/17 21:00 06/13/17 20:23 (Proscar) 5 mg DAILY PO 06/10/17 09:00 06/14/17 08:35 (Glucotrol) 10 mg BIDAC PO 06/10/17 07:00 06/14/17 07:00 (Synthroid) 25 mcg DAILY@0600 PO 06/10/17 06:00 06/14/17 06:16 (Glucophage) 1,000 mg BID PO 06/09/17 21:00 06/14/17 08:35 (Lopressor) 50 mg BID PO 06/09/17 21:00 06/14/17 08:35 (Niacin) 100 mg TID PO 06/09/17 18:00 06/14/17 08:36 (Pravachol) 40 mg DAILY PO 06/10/17 09:00 06/14/17 08:35 (Flomax) 0.4 mg HS PO 06/09/17 21:00 06/13/17 20:23 (Habitrol 7 Mg Patch.24 Hr) 1 patch DAILY T-DERMAL 06/10/17 12:30 06/14/17 08:35 Miscellaneous Information 1 DAILY T-DERMAL 06/11/17 09:00 (NovoLOG SUPPLEMENTAL SCALE) 1 ACHS SLIDING SCALE SQ 06/10/17 12:00 06/13/17 21:04 (Xarelto) 20 mg DAILY PO 06/10/17 12:30 06/14/17 08:35 (Duoneb Neb) 1 ampule Q4HR NEB PRN NEB 06/10/17 22:15 06/11/17 04:54 (PROzac) 20 mg DAILY PO 06/11/17 12:00 06/14/17 08:35 (Prinivil) 20 mg DAILY PO 06/15/17 09:00 UNV (Prinivil) 10 mg ONCE ONCE PO 06/14/17 09:45 06/14/17 09:46 UNV A/P Assessment and Plan CAD S/p CABG. No complaints of chest pain at this time. - continue home medication regimen. HTN Blood pressure has been elevated. - continue Lopressor, clonidine and amlodipine. - lisinopril 20 mg daily added. Adjust as needed. CVA/ Hypercoagulable state On Xarelto as an outpt. - resume Xarelto. COPD The pt still smokes, has wheezing on exam. CXR clear. - oxygen and nebs as needed. - smoking cessation instruction. - nicotine patch. Hypokalemia/ Hypomagnesemia Possibly s/t decreased PO intake. Improved. - repeat labs in AM. Right shoulder pain The pt reports pain in the right shoulder after being put in the police car. Shoulder x ray with degenerative changes. Improved. - monitor as needed. DM On PO meds as an outpt. Glucose level fluctuates. - insulin sliding scale. Renal insufficiency Stable at this time. - avoid nephrotoxic agents. PPx: Montez Cortez DO Jun 14, 2017 09:43
[2017-06-14] MEDS ORDERED: LISINOPRIL 10 MG TAB PO ONE (09:45)
[2017-06-14 14:17] VITALS: BP 140/76; PULSE 59
[2017-06-14] MEDS: LORazepam 1 MG TAB PO PRN (15:30)
--- NOTE | 2017-06-14 17:45 | HHI.PYPN ---
Subjective Remarks Patient was seen and case discussed with nursing. Patient is initially irritable but softens up as the interview goes on. Per nursing he was anxious early in afternoon and received an Ativan. So alert and oriented times 2. Joking and sarcastic throughout the interview. Had a productive conversation with his daughter. Mental Status Examination Appearance: Disheveled Consciousness: Alert Orientation: Person, Place Motor Activity: Normal gait Speech: Unremarkable Language: Adequate Fund of Knowledge: Inadequate Attention and Concentration: Inadequate Memory: Impaired Mood: Irritable Affect: Irritable (less so today), Anxious Thought Process & Associations: Intact, Linear Thought Content: Appropriate, Delusional Hallucination Type: None Delusion Type: Paranoid (that his family is trying to take away his money) Suicidal Ideation: No Suicidal Plan: No Suicidal Intention: No Homicidal Ideation: No Homicidal Plan: No Homicidal Intention: No Insight: Poor Judgment: Impulsive Results Vitals/IOs Vital Signs Date Time Temp Pulse Resp B/P (MAP) Pulse Ox O2 Delivery O2 Flow Rate FiO2 06/14/17 14:17 59 140/76 (97) 06/14/17 06:02 92.5 17 97 Intake and Output 06/14/17 06/14/17 06/15/17 08:00 16:00 00:00 Intake Total 480 ml Balance 480 ml Assessment & Plan Problem List: (1) Dementia with behavioral problem ICD Codes: F03.91 - Unspecified dementia with behavioral disturbance (2) Alzheimer's dementia with behavioral disturbance ICD Codes: G30.8 - Other Alzheimer's disease; F02.81 - Dementia in other diseases classified elsewhere with behavioral disturbance Assessment & Plan Continue current treatment plan Justification for Cont. Inpt. Patient will decompensate in a less restrictive setting Alexis Cabrera DO Jun 14, 2017 17:45
[2017-06-14 17:58] VITALS: BP 132/64; PULSE 47; RESP 17; TEMP 98.4; O2SAT 98
[2017-06-14] MEDS: DONEPEZIL HCL 5 MG TAB PO SCH (21:10)
[2017-06-14] MEDS: TAMSULOSIN HCL 0.4 MG CAP PO SCH (21:10)
[2017-06-14] MEDS: EZETIMIBE 10 MG TAB PO SCH (21:14)
[2017-06-15 05:35] VITALS: BP 161/68; PULSE 43; RESP 18; TEMP 98
[2017-06-15] MEDS: glipiZIDE 10 MG TAB PO SCH ×2 (06:55→16:00)
[2017-06-15] MEDS: LEVOTHYROXINE SODIUM 25 MCG TAB PO SCH (06:55)
[2017-06-15] MEDS: INSULIN ASPART SUPPLEMENTAL SCALE SQ SCH ×4 (07:45→21:09)
[2017-06-15] MEDS: NIACIN 100 MG TAB PO SCH ×3 (08:51→18:00)
[2017-06-15] MEDS: RIVAROXABAN 20 MG TAB PO SCH (08:52)
[2017-06-15] MEDS: FLUoxetine HCL 20 MG CAP PO SCH (08:52)
[2017-06-15] MEDS: PRAVASTATIN SOD 40 MG TAB PO SCH (08:52)
[2017-06-15] MEDS: METOPROLOL TARTRATE 50 MG TAB PO SCH (08:52)
[2017-06-15] MEDS: FINASTERIDE 5 MG TAB PO SCH (08:52)
[2017-06-15] MEDS: cloNIDine HCL 0.1 MG TAB PO SCH ×3 (08:52→18:00)
[2017-06-15] MEDS: metFORMIN HCL 500 MG TAB PO SCH ×2 (08:52→21:06)
[2017-06-15] MEDS: NICOTINE 7 MG/24 HR PATCH T-DERMAL SCH (08:55)
[2017-06-15] MEDS: REMOVE OLD PATCH T-DERMAL SCH (08:55)
[2017-06-15] MEDS ORDERED: LISINOPRIL 10 MG TAB PO SCH (09:00)
[2017-06-15] MEDS ORDERED: LISINOPRIL 20 MG TAB PO ONE (09:15)
[2017-06-15 10:34] LABS: MAGNESIUM 1.3 MG/DL (1.5-2.5)
--- NOTE | 2017-06-15 13:10 | EKG ---
Date Performed: 06/15/2017 Time Performed: 11:17:06 PTAGE: 67 years EKG: Sinus bradycardia Right ventricular conduction disturbance Inferior Q-wave in lead V3 only R-wave progression, which may be a normal variant PREVIOUS TRACING : 06/09/2017 22.28 Since previous tracing, there is improvement in the S T-T changes. DOCTOR: Macario Richards Interpretating Date/Time 06/15/2017 13:09:56
[2017-06-15 13:25] VITALS: BP 132/71; PULSE 57
--- NOTE | 2017-06-15 17:55 | HHI.PYPN ---
Subjective Remarks Patient was seen and case discussed with nursing area patient is alert and oriented 3. Continues to have poor insight concerning his admission. He is looking forward to a discharge next week with his daughter. Behaving well on the unit. No outbursts Mental Status Examination Appearance: Disheveled Consciousness: Alert Orientation: Person, Place, Date/Time Motor Activity: Normal gait Speech: Unremarkable Language: Adequate Fund of Knowledge: Adequate Attention and Concentration: Adequate Memory: Impaired Mood: Appropriate Affect: Anxious Thought Process & Associations: Intact, Linear Thought Content: Appropriate, Delusional Hallucination Type: None Delusion Type: Paranoid (that his family is trying to take away his money) Suicidal Ideation: No Suicidal Plan: No Suicidal Intention: No Homicidal Ideation: No Homicidal Plan: No Homicidal Intention: No Insight: Poor Judgment: Impulsive Results Labs Test 06/15/17 08:10 Blood Urea Nitrogen 14 MG/DL Creatinine 0.94 MG/DL Random Glucose 159 MG/DL Calcium Level 9.1 MG/DL Magnesium Level 1.3 MG/DL Sodium Level 137 MEQ/L Potassium Level 4.0 MEQ/L Chloride Level 102 MEQ/L Carbon Dioxide Level 28.0 MEQ/L Anion Gap 7 MEQ/L Estimat Glomerular Filtration Rate 80 ML/MIN Vitals/IOs Vital Signs Date Time Temp Pulse Resp B/P (MAP) Pulse Ox O2 Delivery O2 Flow Rate FiO2 06/15/17 13:25 57 132/71 (91) 06/15/17 05:35 98.0 18 06/14/17 17:58 98 Intake and Output 06/15/17 06/15/17 06/16/17 08:00 16:00 00:00 Intake Total 480 ml Balance 480 ml Assessment & Plan Problem List: (1) Dementia with behavioral problem ICD Codes: F03.91 - Unspecified dementia with behavioral disturbance (2) Alzheimer's dementia with behavioral disturbance ICD Codes: G30.8 - Other Alzheimer's disease; F02.81 - Dementia in other diseases classified elsewhere with behavioral disturbance Assessment & Plan Continue current treatment plan Justification for Cont. Inpt. Patient would decompensate in a less restrictive setting Alexis Cabrera DO Jun 15, 2017 17:55
[2017-06-15 18:20] VITALS: BP 123/58; PULSE 47; RESP 16; TEMP 98.4; O2SAT 95
[2017-06-15] MEDS: METOPROLOL TARTRATE 25 MG TAB PO SCH (21:00)
[2017-06-15] MEDS: EZETIMIBE 10 MG TAB PO SCH (21:06)
[2017-06-15] MEDS: TAMSULOSIN HCL 0.4 MG CAP PO SCH (21:06)
[2017-06-15] MEDS: DONEPEZIL HCL 5 MG TAB PO SCH (21:06)
[2017-06-16 00:26] VITALS: BP 128/62; PULSE 55
[2017-06-16 05:44] VITALS: BP 173/66; PULSE 44; RESP 16; TEMP 97.8; O2SAT 97
[2017-06-16] MEDS: LEVOTHYROXINE SODIUM 25 MCG TAB PO SCH (06:23)
[2017-06-16] MEDS: INSULIN ASPART SUPPLEMENTAL SCALE SQ SCH (08:00)
[2017-06-16] MEDS ORDERED: XARE20TA PO (08:49)
[2017-06-16] MEDS ORDERED: LISI40TA PO (08:49)
[2017-06-16] MEDS ORDERED: METO25TA3 PO (08:49)
--- NOTE | 2017-06-16 08:51 | HHI.DS ---
Psychiatry Discharge Summary Inpatient Psychiatric care?: Yes Advance Directive: No Reason Not Provided: Givent to patient Mental Health AdvanceDirective: No Health Care Proxy: No Admission Admission Date Jun 09, 2017 at 17:28 Admission Diagnosis: (1) Dementia with behavioral problem ICD Code: F03.91 - Unspecified dementia with behavioral disturbance (2) Alzheimer's dementia with behavioral disturbance ICD Code: G30.8 - Other Alzheimer's disease; F02.81 - Dementia in other diseases classified elsewhere with behavioral disturbance Brief History 67-year-old male with dementia brought in under a [employer] act for inability to care for himself. The patient apparently could not remember where he lived and he was taken to a flea market where police picked him up and brought him to the emergency department. Patient states he was driving his car last night and ran out of gas. He called his daughter and she reportedly stated she would send help. Patient slept in his car last night. Patient's daughter states she was called at 3:00 in the morning and she called for assistance for her father. They were unable to locate his car. She has had difficulty keeping the patient on track and she lives in [place]. Upon interview, the patient is obviously confused. He does not wish to go to [place] and states we had better get for large men if we expect to move him there. He has also threatened his daughter. He has minimal recollection of events last night and has a tendency to confabulate. He is obviously unable to care for himself and has multiple medical problems with multiple cognitive deficits. He keeps stating his family members are trying to steal from him and that we are trying to lock him up. 06/10/17 - second opinion Patient is a 67-year-old man, , domiciled alone, unemployed, retired on social security benefits, no past psychiatric history, previous diagnosis of dementia, past medical history of diabetes, hypertension, coronary artery disease (bypass 8-10 years ago), history of alcohol use 2-3 times a week , who was brought in under [employer] act by police for concern of inability to care for self. Patient was found lying in hospital bed, cooperative interview today. Patient states that he does not know why he is here and states that some gifts officer urges brought into the hospital. Patient is alert and oriented only to person and place at this time. Patient states that prior to his hospitalization he was speaking to someone in the [employer] and police that showed up and put him in the car brought to the hospital. Patient did recall having run out of gas on the highway and implement giving him rides to the [employer]. Patient states that he goes the [employer] often to look at "junk" stating that he goes there to have something to do. Patient stated that his mood is "good" denies feeling sad or depressed, denies any manic symptoms or psychotic symptoms. Patient states they've been sleeping well, good appetite , good energy, decreased concentration denies any perceptual disturbances or delusions at this time. Family history: Denies Past psychiatric history: Denies previous psychiatric diagnoses although as per chart had no symptoms dementia, denies previous psychiatric hospitalizations, previous medication trials, previous suicide attempt or self-injurious behavior. Patient denies history of abuse. Substance use history: Tobacco(+) , alcohol use "occasionally" 2-3 times a week and usually about 2-3 drinks, last drink was weeks ago. Patient denies use of any other drugs, denies previous detox or rehabilitation programs. Past medical history: DM, HTN, CAD (bypass 8-10 years ago) Allergies: Denies Social history: , lives alone, has daughter as power of commercial real estate attorney ( Harleen Bull) . Retired on social security benefits, highest education is 10th grade, no history, reports having firearms at home. Legal history: Has a previous charge of assault and battery a couple of months ago which she did penitentiary time of 3-4 days. Tobacco Use In Past 30 Days: 5 or More Cigarettes/Day Alcohol Use: 2-3 Times Per Week Hospital Course Patient is a 67-year-old man, , domiciled alone, unemployed, retired on social security benefits, no past psychiatric history, previous diagnosis of dementia, past medical history of diabetes, hypertension, coronary artery disease (bypass 8-10 years ago), history of alcohol use 2-3 times a week , who was brought in under [employer] act by police for concern of inability to care for self. Patient was found lying in hospital bed, cooperative interview today. Patient was continued on fluoxetine 20mg PO daily and Namenda 10mg PO daily along with his medications for chronic medical issues which he tolerated well. Patient was noted to have difficulty with recalling events during admission as well as conversations which were carried out with staff. He was noted to have some irritability due to wanting discharge but improved mood, and compliant with staff and treatment. Patient maintained fair mood, was goal-directed and agreeable to home health services upon discharge but patients children were wanting patient to move back to [place] to live with them. Patient agreed to continue medication regimen and outpatient follow up for continuity of care. Patient agreed on returning home with his children whom plan on finding housing and services for him. Patient advised to call 911 or go nearest ED in case of emergency. Patient agrees with plan. Results Blood Pressure 173 / 66 Vital Signs Date Time Temp Pulse Resp B/P (MAP) Pulse Ox O2 Delivery O2 Flow Rate FiO2 06/16/17 05:44 97.8 44 16 173/66 (101) 97 173/66 (101) Laboratory Tests Test 06/15/17 08:10 Random Glucose 159 MG/DL (74-106) Magnesium Level 1.3 MG/DL (1.5-2.5) Estimat Glomerular Filtration Rate 80 ML/MIN (>89) Laboratory Results Test 06/10/17 04:07 Cholesterol Level 197 MG/DL (120-200) HDL Cholesterol 31.6 MG/DL (40.0-60.0) Hemoglobin A1c 7.7 % (4.3-6.0) LDL Cholesterol 112 MG/DL (0-99) Triglycerides Level 269 MG/DL (42-150) Summary of Procedures None Imaging Last Impressions Shoulder X-Ray 06/10/17 0000 Signed Impressions: Service Date/Time: Saturday, June 10, 2017 15:00 - CONCLUSION: 1. Moderate degenerative changes as described above. If there is continued concern for rotator cuff pathology MRI is recommended. Evan Cheney MD Chest X-Ray 06/08/17 0000 Signed Impressions: Service Date/Time: Thursday, June 08, 2017 22:42 - CONCLUSION: No acute disease. Montez Johnson MD Pending results at discharge: No Medications # of Antipsychotic meds at D/C: 0 Approp Antipsych med options 1 - Minimum of three failed multiple trials of monotherapy. 2 - Documented plan to taper to monotherapy due to previous use of multiple meds OR cross-taper in progress at D/C. 3 - Documentation of augmentation of Clozapine. 4 - Justification other than those listed in allowable values 1-3, document here : Discharge Discharge Date: Jun 16, 2017 Discharge Diagnosis: (1) Dementia with behavioral problem ICD Code: F03.91 - Unspecified dementia with behavioral disturbance (2) Alzheimer's dementia with behavioral disturbance ICD Code: G30.8 - Other Alzheimer's disease; F02.81 - Dementia in other diseases classified elsewhere with behavioral disturbance Pt Condition on Discharge: Stable Discharge Disposition: Discharge Home Discharge Instructions Diet Instructions: Heart Healthy Diet, Diabetic Diet Activities you can perform: Regular-No Restrictions Discharge Time > 30 minutes Mental Status Examination Appearance: Disheveled Consciousness: Alert Orientation: Person, Place, Date/Time Motor Activity: Normal gait Speech: Unremarkable Language: Adequate Fund of Knowledge: Adequate Attention and Concentration: Adequate Memory: Impaired Mood: Appropriate Affect: Appropriate Thought Process & Associations: Intact, Linear Thought Content: Appropriate Hallucination Type: None Delusion Type: None Suicidal Ideation: No Suicidal Plan: No Suicidal Intention: No Homicidal Ideation: No Homicidal Plan: No Homicidal Intention: No Insight: Poor Judgment: Impulsive Discharge/Advance Care Plan Health Problems: (1) Dementia with behavioral problem (2) Alzheimer's dementia with behavioral disturbance Goals to promote your health * To prevent worsening of your condition and complications * To maintain your health at the optimal level Directions to meet your goals Take your medications as prescribed Follow your dietary instruction Follow activity as directed Keep your appointments as scheduled Take your immunizations and boosters as scheduled If your symptoms worsen call your PCP, if no PCP go to Urgent Care Center or Emergency Room For 27/01 questions related to your inpatient stay or results of tests pending at discharge, please contact Dr. Johann López at Smoking is Dangerous to Your Health. Avoid second hand smoking Johann López MD Jun 16, 2017 08:51
[2017-06-16] MEDS ORDERED: MAGNESIUM OXIDE 400 MG TAB PO SCH (09:00)
[2017-06-16] MEDS: REMOVE OLD PATCH T-DERMAL SCH (09:00)
[2017-06-16] MEDS: NIACIN 100 MG TAB PO SCH (09:00)
[2017-06-16] MEDS ORDERED: LISINOPRIL 20 MG TAB PO SCH (09:00)
[2017-06-16] MEDS: cloNIDine HCL 0.1 MG TAB PO SCH (09:06)
[2017-06-16] MEDS: glipiZIDE 10 MG TAB PO SCH (09:06)
[2017-06-16] MEDS: METOPROLOL TARTRATE 25 MG TAB PO SCH (09:07)
[2017-06-16] MEDS: metFORMIN HCL 500 MG TAB PO SCH (09:07)
[2017-06-16] MEDS: FLUoxetine HCL 20 MG CAP PO SCH (09:07)
[2017-06-16] MEDS: RIVAROXABAN 20 MG TAB PO SCH (09:08)
[2017-06-16] MEDS: PRAVASTATIN SOD 40 MG TAB PO SCH (09:08)
[2017-06-16] MEDS: FINASTERIDE 5 MG TAB PO SCH (09:08)
[2017-06-16] MEDS: NICOTINE 7 MG/24 HR PATCH T-DERMAL SCH (09:09)
--- NOTE | 2017-06-16 12:55 | HHI.PR ---
Subjective Remarks The pt was being discharged. Discussed with family over the phone about discontinuing Lopressor s/t heart rate and following up with his PCP. Objective Vitals Vital Signs Date Time Temp Pulse Resp B/P (MAP) Pulse Ox O2 Delivery O2 Flow Rate FiO2 06/16/17 05:44 97.8 44 16 173/66 (101) 97 173/66 (101) 06/16/17 00:26 55 128/62 (84) 06/15/17 18:20 98.4 47 16 123/58 (79) 95 06/15/17 13:25 57 132/71 (91) I/O 06/15/17 06/15/17 06/15/17 06/16/17 06/16/17 06/16/17 07:00 15:00 23:00 07:00 15:00 23:00 Intake Total 480 ml Balance 480 ml Intake Oral 480 ml # Voids 1 2 Result Diagram: 06/15/17 0810 Imaging Last Impressions Shoulder X-Ray 06/10/17 0000 Signed Impressions: Service Date/Time: Saturday, June 10, 2017 15:00 - CONCLUSION: 1. Moderate degenerative changes as described above. If there is continued concern for rotator cuff pathology MRI is recommended. Evan Cheney MD Chest X-Ray 06/08/17 0000 Signed Impressions: Service Date/Time: Thursday, June 08, 2017 22:42 - CONCLUSION: No acute disease. Montez Johnson MD Objective Remarks GENERAL: This is a well-nourished, well-developed patient, in no apparent distress. SKIN: No rashes, ecchymoses or lesions. Cool and dry. HEAD: Atraumatic. Normocephalic. No temporal or scalp tenderness. EYES: Pupils equal round and reactive. Extraocular motions intact. No scleral icterus. No injection or drainage. ENT: Nose without bleeding, purulent drainage or septal hematoma. Throat without erythema, tonsillar hypertrophy or exudate. Uvula midline. Airway patent. NECK: Trachea midline. No JVD or lymphadenopathy. Supple, nontender, no meningeal signs. CARDIOVASCULAR: Regular rate and rhythm without murmurs, gallops, or rubs. RESPIRATORY: Mild wheezing appreciated. GASTROINTESTINAL: Abdomen soft, non-tender, nondistended. No hepato-splenomegaly , or palpable masses. No guarding. MUSCULOSKELETAL: Extremities without clubbing, cyanosis, or edema. No joint tenderness, effusion, or edema noted. NEUROLOGICAL: Awake and alert. Cranial nerves II through XII intact. Motor and sensory grossly within normal limits. Five out of 5 muscle strength in all muscle groups. Normal speech. PSYCH: Calm. A/P Assessment and Plan CAD S/p CABG. No complaints of chest pain at this time. - continue home medication regimen. HTN Blood pressure has been elevated. Has been bradycardic. EKG noted. - continue clonidine and amlodipine. - lisinopril 40 mg daily added. - d/c Lopressor and f/u with PCP. CVA/ Hypercoagulable state On Xarelto as an outpt. - resume Xarelto. COPD The pt still smokes, has wheezing on exam. CXR clear. - oxygen and nebs as needed. - smoking cessation instruction. - nicotine patch. Hypokalemia/ Hypomagnesemia Possibly s/t decreased PO intake. Improved. - outpt follow-up. Right shoulder pain The pt reports pain in the right shoulder after being put in the police car. Shoulder x ray with degenerative changes. Improved. - monitor as needed. DM On PO meds as an outpt. Glucose level fluctuates. - insulin sliding scale. Renal insufficiency Stable at this time. - avoid nephrotoxic agents. PPx: Montez Cortez DO Jun 16, 2017 12:55
== END 2017-06-16 10:40 | disposition home or self-care (01) | DRG 57 ==
LOC: NEDAMB 16:11 → NEDA 06-09 17:28 → H4EA 06-10 06:48 → H250 06-12 21:05
PROVIDERS: ADMIT Student in an Organized Health Care Education/Training Program; ATTEND Student in an Organized Health Care Education/Training Program
DX: G30.9 Alzheimer's disease, unspecified (principal); F02.81 Dementia in other diseases classified elsewhere, unspecified severity, with behavioral disturbance; I50.22 Chronic systolic (congestive) heart failure; I11.0 Hypertensive heart disease with heart failure; I69.319 Unspecified symptoms and signs involving cognitive functions following cerebral infarction; H91.90 Unspecified hearing loss, unspecified ear; I25.2 Old myocardial infarction; F17.210 Nicotine dependence, cigarettes, uncomplicated; I25.10 Atherosclerotic heart disease of native coronary artery without angina pectoris; Z95.1 Presence of aortocoronary bypass graft; Z79.02 Long term (current) use of antithrombotics/antiplatelets; N40.0 Benign prostatic hyperplasia without lower urinary tract symptoms; E11.9 Type 2 diabetes mellitus without complications; Z79.84 Long term (current) use of oral hypoglycemic drugs; E78.5 Hyperlipidemia, unspecified; E03.9 Hypothyroidism, unspecified; F32.9 Major depressive disorder, single episode, unspecified; J44.9 Chronic obstructive pulmonary disease, unspecified; E87.6 Hypokalemia; M25.511 Pain in right shoulder; N28.9 Disorder of kidney and ureter, unspecified
CPT/HCPCS: 71010; 73030; 80048; 80053; 80061; 80307; 82306; 82607; 82948; 83036; 83735; 84443; 85025; 93005; J1815; J3475; Q0163